=== PATIENT | male | born 1955 | race Caucasian/White ===

== ENCOUNTER 2018-05-26 08:35 | Day surgery (SDC) | payer BC ==
[2018-05-26] MEDS ORDERED: PROPOFOL 10 MG/ML VIAL IV ONE (08:36)
[2018-05-26] MEDS ORDERED: LIDOCAINE 2% MDV (20MG/ML) 20ML VIAL IV ONE (08:36)
--- NOTE | 2018-05-27 08:00 | Operative Note ---
DATE OF SURGERY: 05/26/18 OPERATION: COLONOSCOPY. PREOPERATIVE DIAGNOSIS: Colon cancer screening, average risk, subsequent 10-year followup. POSTOPERATIVE DIAGNOSIS: Fair quality right-sided colonic prep, otherwise normal exam. PROCEDURE: After informed consent was obtained from the patient, he was placed in the left lateral decubitus position in the endoscopy suite, sedated and monitored by the department of anesthesia. Digital rectal exam was unremarkable. A well-lubricated [id number] colonoscope was inserted into the rectum and advanced to the cecum. Preparation quality in the right colon was fair at best. Particulate matter was retained despite rinsing. Portions of the mucosa were unable to be examined adequately. The endoscope was retracted through the ascending, transverse colon, descending colon, sigmoid colon, and rectum. No obvious polyps, mass lesions, or inflammation was seen throughout the length of the colon. J-turn views of the anorectum were unremarkable. The endoscope was straightened, the rectal ampulla deflated, and the endoscope was removed. RECOMMENDATIONS: The patient should resume his medications and diet. I would recommend a repeat exam in 3 years based on the quality of the prep. As always, thank you for allowing me to participate in the healthcare of your patients. CC: DO RONAL Delgado
== END 2018-05-26 10:10 | disposition home or self-care (01) ==
LOC: HOP 08:35
PROVIDERS: ATTEND Internal Medicine Gastroenterology
DX: Z12.11 Encounter for screening for malignant neoplasm of colon (principal)
CPT/HCPCS: 00812; G0121